=== PATIENT | male | born 1995 | race Caucasian/White ===

== ENCOUNTER 2018-10-05 21:18 | Emergency (ER) | payer OTHER ==
[~2018-10-05] VITALS: Ht 172.7 cm; Wt 77.1 kg
[2018-10-05 21:39] VITALS: Ht 172.7 cm; Wt 77.1 kg
[2018-10-05 23:30] VITALS: BP 126/87
== END 2018-10-05 23:30 | disposition home or self-care (01) ==
LOC: ED 21:18
DX: L03.115 Cellulitis of right lower limb (principal)
CPT/HCPCS: J0696

== ENCOUNTER 2018-10-08 22:51 | Observation (INO) | payer OTHER ==
[~2018-10-08] VITALS: Ht 172.7 cm; Wt 80.1 kg
[2018-10-08 22:56] VITALS: Ht 172.7 cm; Wt 80.1 kg
[2018-10-09 00:27] LABS: BASOPHIL % 0.3 % (0-2); PLATELET COUNT 342 x10^3mcL (130-400); RED CELL DISTRIBUTION WIDTH 12.3 % (11.5-14.5)
[2018-10-09] MEDS ORDERED: KEFLEX500 M1 (00:33)
[2018-10-09] MEDS ORDERED: BACTRIM1 TAB (00:33)
[2018-10-09 00:34] LABS: CALCIUM 9.3 mg/dL (8.5-10.1); CARBON DIOXIDE 27.9 mmol/L (21-32); CHLORIDE SERUM 101 mmol/L (98-107); CREATININE SERUM 1.1 mg/dL (0.7-1.3); GFR1 > 60 mL/min; GLUCOSE SERUM 88 mg/dL (74-106); POTASSIUM SERUM 3.8 mmol/L (3.5-5.1); SODIUM SERUM 140 mmol/L (136-145)
[2018-10-09 00:45] LABS: ALKALINE PHOSPHATASE 113 U/L (46-116); ALT/SGPT 31 U/L (16-63); AST/SGOT 18 U/L (15-37); BILIRUBIN TOTAL 0.2 mg/dL (0.20-1.00); C REACTIVE PROTEIN 3.3 mg/dL (<=0.9)
[2018-10-09 00:46] LABS: T3 TOTAL 1.3 ng/mL
[2018-10-09 00:48] LABS: TOTAL PROTEIN, SERUM 8.3 g/dL (6.4-8.2)
[2018-10-09 01:01] LABS: CK-MB 0.7 ng/mL (0-3.6); FREE T4 0.98 ng/dL (0.76-1.46); FREE THYROXINE INDEX 3.4 ug/dL (1.4-4.5); T4(THYROXINE) 9.4 ug/dL (4.7-13.3)
[2018-10-09 01:43] LABS: ERYTHROCYTE SED RATE 24 mm/hr (0-15)
[2018-10-09 02:19] LABS: microscopic required? NO
[2018-10-09 02:39] LABS: UA SPECIFIC GRAVITY 1.025 (1.005-1.035); urine erythrocyte NEGATIVE (NEGATIVE)
[2018-10-09 05:07] VITALS: BP 139/67
[2018-10-09 08:51] VITALS: BP 106/47
[2018-10-09 17:23] VITALS: BP 142/97
[2018-10-09 20:45] VITALS: BP 128/61
[2018-10-10 05:31] VITALS: BP 103/59
[2018-10-10 06:12] LABS: BASOPHIL % 0.3 % (0-2); PLATELET COUNT 317 x10^3mcL (130-400); RED CELL DISTRIBUTION WIDTH 12.2 % (11.5-14.5)
[2018-10-10 06:46] LABS: ALBUMIN 3.4 g/dL (3.4-5.0); ALKALINE PHOSPHATASE 91 U/L (46-116); ALT/SGPT 25 U/L (16-63); AST/SGOT 18 U/L (15-37); BILIRUBIN DIRECT 0.12 mg/dL (0.0-0.2); CALCIUM 8.9 mg/dL (8.5-10.1); CARBON DIOXIDE 27.9 mmol/L (21-32); CHLORIDE SERUM 104 mmol/L (98-107); CREATININE SERUM 1.1 mg/dL (0.7-1.3); GFR1 > 60 mL/min; GLUCOSE SERUM 96 mg/dL (74-106); SODIUM SERUM 139 mmol/L (136-145); TOTAL PROTEIN, SERUM 7.5 g/dL (6.4-8.2)
[2018-10-10 10:07] VITALS: BP 114/75
[2018-10-10 17:12] VITALS: BP 145/70
[2018-10-10 20:21] VITALS: BP 132/78
[2018-10-11 05:12] VITALS: BP 124/66
[2018-10-11 10:17] VITALS: BP 119/59
[2018-10-11] MEDS ORDERED: MOT600 PO (10:20)
[2018-10-11] MEDS ORDERED: CLEOCIN HCL300 MG PO (10:20)
[2018-10-11 10:34] VITALS: BP 119/59
== END 2018-10-11 14:28 | disposition home or self-care (01) | DRG 383 ==
LOC: ED 22:51 → MU 10-09 02:02 → DU 10-09 04:22 → MU 10-09 04:41
PROVIDERS: Specialist; ADMIT Internal Medicine
DX: L03.115 Cellulitis of right lower limb (principal); I73.00 Raynaud's syndrome without gangrene; Z68.25 Body mass index [BMI] 25.0-25.9, adult
CPT/HCPCS: 84439; G0378; J2543; J7030; J7040; Q0162

== ENCOUNTER 2019-05-15 11:54 | Emergency (ER) | payer OTHER ==
[~2019-05-15] VITALS: Ht 172.7 cm; Wt 81.2 kg
[~2019-05-15 11:54] MED LIST: BACTRIM1 TAB; CLEOCIN HCL300 MG PO; KEFLEX500 M1; MOT600 PO
[2019-05-15 12:00] VITALS: Ht 172.7 cm; Wt 81.2 kg
[2019-05-15 13:01] LABS: BASOPHIL % 0.3 % (0-2); PLATELET COUNT 295 x10^3mcL (130-400); RED CELL DISTRIBUTION WIDTH 12.6 % (11.5-14.5)
[2019-05-15 13:09] LABS: CALCIUM 8.9 mg/dL (8.5-10.1); CARBON DIOXIDE 24.8 mmol/L (21-32); CHLORIDE SERUM 107 mmol/L (98-107); CREATININE SERUM 0.9 mg/dL (0.7-1.3); GFR1 > 60 mL/min; GLUCOSE SERUM 93 mg/dL (74-106); SODIUM SERUM 141 mmol/L (136-145)
[2019-05-15 16:08] VITALS: BP 135/61
== END 2019-05-15 16:08 | disposition home or self-care (01) ==
LOC: ED 11:54
PROVIDERS: Student in an Organized Health Care Education/Training Program
DX: R07.89 Other chest pain (principal); R05 Cough
CPT/HCPCS: 36415; 85378